=== PATIENT | female | born 1995 | race African-American/Black ===

== ENCOUNTER 2017-09-18 00:41 | Emergency (ER) | payer OTHER ==
[2017-09-18 00:54] VITALS: TEMP 98.6; BMI 21.1
--- NOTE | 2017-09-18 01:03 | PDOC ---
History of Present Illness - General History Source: Patient Exam Limitations: No Limitations - History of Present Illness Initial Comments: 09/18/17 01:07 The patient is a 22 year old female (approx. 15 weeks ), with no significant past medical history, who presents to the emergency room complaining of left sided tooth ache. The patient reports the pain began approx. two days ago, however, today the pain has progressed and is much worse. She reports associated symptoms of tenderness around the left jaw region. She denies recent falls or trauma. She denies recent fever, chills, nausea or dizziness. She denies chest pain or shortness of breath. Allergies: NKA <Jose J Ramos - Last Filed: 09/18/17 01:24> <Karolina Lai - Last Filed: 09/18/17 03:51> - General Chief Complaint: Toothache Stated Complaint: TOOTH PAIN Past History <Jose J Ramos - Last Filed: 09/18/17 01:24> - Suicide/Smoking/Psychosocial Hx Smoking History: Never smoked Have you smoked in the past 12 months: No Information on smoking cessation initiated: No Hx Alcohol Use: No Drug/Substance Use Hx: No <Karolina Lai - Last Filed: 09/18/17 03:51> - Past Medical History Allergies/Adverse Reactions: Allergies Allergy/AdvReac Type Severity Reaction Status Date / Time No Known Allergies Allergy Verified 09/18/17 00:52 Review of Systems - Review of Systems Comments:: 09/18/17 01:25 GENERAL/CONSTITUTIONAL: No fever or chills. No weakness. HEAD, EYES, EARS, NOSE AND THROAT: +Left sided tooth ache. No change in vision. No ear pain or discharge. No sore throat. MUSCULOSKELETAL: No joint or muscle swelling or pain. No neck or back pain. SKIN: No rash <Jose J Ramos - Last Filed: 09/18/17 01:24> *Physical Exam - Vital Signs Last Vital Signs Temp Pulse Resp BP Pulse Ox 98.6 F 95 H 14 129/91 100 09/18/17 00:52 09/18/17 00:52 09/18/17 00:52 09/18/17 00:52 09/18/17 00:52 - Physical Exam Comments: 09/18/17 01:28 GENERAL: Awake, alert, and fully oriented HEAD: No signs of trauma EYES: PERRLA, EOMI, sclera anicteric, conjunctiva clear ENT: Auricles normal inspection, hearing grossly normal, nares patent, oropharynx clear without exudates. Moist mucosa NECK: Normal ROM, supple, no lymphadenopathy, JVD, or masses EXTREMITIES: Normal range of motion, no edema. No clubbing or cyanosis. No cords, erythema, or tenderness SKIN: Warm, Dry, normal turgor, no rashes or lesions noted. <Jose J Ramos - Last Filed: 09/18/17 01:24> - Vital Signs Last Vital Signs Temp Pulse Resp BP Pulse Ox 98.6 F 95 H 14 129/91 100 09/18/17 00:52 09/18/17 00:52 09/18/17 00:52 09/18/17 00:52 09/18/17 00:52 <Karolina Lai - Last Filed: 09/18/17 03:51> ED Treatment Course - LABORATORY CBC & Chemistry Diagram: 09/18/17 02:00 09/18/17 02:00 <Karolina Lai - Last Filed: 09/18/17 03:51> Medical Decision Making - Medical Decision Making 09/18/17 03:09 Pt is 15 weeks and she comes with a left maxillary swelling and infection/phlegmon/early abscess (seen on sono) due to a broken tooth. Pt was treated with amoxil; however she will likely require transfer to [facility] for further eval and drainage. I have called the OMFS service at [facility] for consultation. Pt is afebrile and her WBC is 11, with no left shift, so she may be stable to follow as an outpatient. 09/18/17 03:[address] Curran OMFS service and he accepts the ED to ED transfer so that her early abscess can be dealt with sooner than later, given that she is 15 weeks . 09/18/17 03:51 Dr. Askew at [facility] ER will accept the patient. <Karolina Lai - Last Filed: 09/18/17 03:51> *DC/Admit/Observation/Transfer - Attestations Scribe Attestion: 09/18/17 01:31 Documentation prepared by Jose J Ramos, acting as biomedical photographer for Karolina Lai MD. <Jose J Ramos - Last Filed: 09/18/17 01:24> - Discharge Dispostion Admit: No - Transfer to Acute Care Facility Receiving Facility: [facility] <Karolina Lai - Last Filed: 09/18/17 03:51> Diagnosis at time of Disposition: Acute abscess of maxillary sinus - Discharge Dispostion Disposition: TRANSFER ACUTE CARE/OTHER HOSP Condition at time of disposition: Guarded - Patient Instructions Printed Discharge Instructions: DI for Tooth Decay, DI for Tooth Abscess
[2017-09-18] MEDS ORDERED: AMOXICILLIN 500 MG CAPSULE (FP) PO ONE (01:07)
[2017-09-18] MEDS ORDERED: AMOXICILLIN 500 MG CAPSULE (FP) ONE (01:29)
[2017-09-18 02:05] LABS: BASOPHIL 0.3 % (0-2.0); EOSINOPHIL 1.6 % (0-4.5); MCH 26.2 pg (25.7-33.7); MCHC 33.2 g/dl (32.0-36.0); MEAN CELL VOLUME 79.1 fl (80-96); MEAN PLT VOLUME 8.1 fl (7.5-11.1); NEUTROPHILS 71.7 % (42.8-82.8); PLATELET COUNT 312 K/MM3 (134-434); RDW 15.5 % (11.6-15.6); WHITE BLOOD COUNT 11.1 K/mm3 (4.0-10.0)
[2017-09-18 03:19] LABS: ALBUMIN 3.1 g/dl (3.4-5.0); ALK PHOS 56 U/L (45-117); ANION GAP 11 (8-16); BILIRUBIN,TOTAL 0.1 mg/dL (0.2-1.0); CO2 24 mmol/L (21-32); CREATININE 0.7 mg/dL (0.55-1.02); GLUCOSE,RANDOM 94 mg/dL (74-106); SGOT/AST 10 U/L (15-37); SGPT/ALT 12 U/L (12-78); TOT PROT 6.7 g/dl (6.4-8.2)
[2017-09-18 03:29] LABS: CALCIUM 8.6 mg/dL (8.5-10.1)
[2017-09-18 04:24] VITALS: BP 130/68; PULSE 96
== END 2017-09-18 04:30 | disposition short-term general hospital (02) ==
LOC: JER 00:41
DX: O99.89 Other specified diseases and conditions complicating pregnancy, childbirth and the puerperium (principal); J01.00 Acute maxillary sinusitis, unspecified; Z3A.15 15 weeks gestation of pregnancy
CPT/HCPCS: 36415; 76536-TC; 80053; 85025; 99283-25

== ENCOUNTER 2018-03-02 15:35 | Inpatient (IN) | payer OTHER ==
[2018-03-02] MEDS: AMPICILLIN - 2 GM in SODIUM CHLORIDE 100 ML IVPB ONE ×2 (15:40→15:45)
[2018-03-02] MEDS ORDERED: OXYTOCIN 20 UNITS in 0.9% NS 20 UNIT/1,000 ML INFUS.BAG IV ONE ×3 (16:00→19:22)
[2018-03-02] MEDS ORDERED: LIDOCAINE HCL 1% PRESERVATIVE FREE - 30ML VIAL ONE (16:00)
[2018-03-02] MEDS ORDERED: DEXTROSE 5%-LACTATED RINGERS 1,000 ML IV SCH (16:00)
[2018-03-02] MEDS ORDERED: OXYTOCIN 20 UNITS in 0.9% NS 20 UNIT/1,000 ML INFUS.BAG IV SCH (16:25)
[2018-03-02] MEDS ORDERED: ACETAMINOPHEN 325 MG TABLET (FP) ONE (17:06)
[2018-03-02] MEDS ORDERED: IBUPROFEN 600 MG TABLET (FP) PO ONE (17:06)
[2018-03-02 17:18] LABS: VENOUS PC02 37.5 mmHg (38-52); VENOUS PH 7.35 (7.32-7.42); VENOUS PO2 37.7 mmHg (28-48)
[2018-03-02 17:26] LABS: ARTERIAL BLOOD GAS BASE EXCESS -4.3 meq/l (-2-2); ARTERIAL BLOOD GAS PCO2 56.1 mmHg (35-45)
[2018-03-02 17:36] LABS: ARTERIAL BLOOD GAS PO2 19.5 mmHg (80-100); ARTERIAL BLOOD GAS pH 7.24 (7.35-7.45)
[2018-03-02 17:37] LABS: ARTERIAL BLD GAS O2 SATURATION 33.8 % (90-98.9)
[2018-03-02 17:42] LABS: BASO % 0.3 % (0-2.0); HEMATOCRIT 28.1 % (32.4-45.2); HEMOGLOBIN 8.9 GM/dL (10.7-15.3); LYMPH % 9.2 % (8-40); MCH 22.2 pg (25.7-33.7); MCHC 31.9 g/dl (32.0-36.0); MEAN CELL VOLUME 69.7 fl (80-96); MEAN PLT VOLUME 8.6 fl (7.5-11.1); MONO % 6.4 % (3.8-10.2); NEUT % 84.1 % (42.8-82.8); PLATELET COUNT 364 K/MM3 (134-434); RBC 4.03 M/mm3 (3.60-5.2); RDW 17.9 % (11.6-15.6); WHITE BLOOD COUNT 11.4 K/mm3 (4.0-10.0)
[2018-03-02 17:57] LABS: INR 0.99 (0.82-1.09); PROTHROMBIN TIME (PATIENT) 11.2 SEC (9.98-11.88)
[2018-03-02 18:11] LABS: ALBUMIN 2.9 g/dl (3.4-5.0); ANION GAP 15 (8-16); BILIRUBIN,TOTAL 0.5 mg/dL (0.2-1.0); BLOOD UREA NITROGEN 7 mg/dL (7-18); CALCIUM 8.9 mg/dL (8.5-10.1); CHLORIDE 103 mmol/L (98-107); CO2 19 mmol/L (21-32); CREATININE 0.8 mg/dL (0.55-1.02); GLUCOSE,RANDOM 78 mg/dL (74-106); POTASSIUM 3.7 mmol/L (3.5-5.1); SGOT/AST 16 U/L (15-37); SGPT/ALT 9 U/L (12-78); SODIUM 137 mmol/L (136-145); TOT PROT 7.2 g/dl (6.4-8.2)
[2018-03-02 18:12] LABS: ALK PHOS 239 U/L (45-117)
[2018-03-02 18:15] VITALS: BMI 27.1
[2018-03-02 18:51] LABS: URINE APPEARANCE CLEAR; URINE BILIRUBIN NEGATIVE (<2.0 mg/dL); URINE BLOOD NEGATIVE (NEGATIVE); URINE COLOR YELLOW; URINE GLUCOSE (UA) NEGATIVE (NEGATIVE); URINE KETONE 2+ (NEGATIVE); URINE LEUK ESTERASE NEGATIVE (NEGATIVE); URINE NITRITE NEGATIVE (NEGATIVE)
[2018-03-02] MEDS ORDERED: IBUPROFEN 600 MG TABLET (FP) PO PRN ×2 (18:55→22:03)
[2018-03-02] MEDS ORDERED: SENNOSIDES/DOCUSATE COMBO (SENNA PLUS) TABLET (UD) PO PRN (18:56)
[2018-03-02] MEDS ORDERED: ACETAMINOPHEN 325 MG TABLET (FP) PO PRN ×2 (18:56→22:03)
[2018-03-02] MEDS ORDERED: BENZOCAINE 28 GM HEMORRHOIDAL OINTMENT TP PRN ×2 (18:57→22:03)
[2018-03-02] MEDS ORDERED: WITCH HAZEL 50% (TUCKS) 40 PAD/JAR PAD TP PRN ×2 (18:58→22:03)
[2018-03-02] MEDS ORDERED: BENZOCAINE 20% 57 GM BOTTLE TP PRN ×2 (18:58→22:03)
[2018-03-02] MEDS ORDERED: METHYLERGONOVINE MALEATE 0.2 MG/1 ML AMP IM PRN ×2 (18:58→22:03)
[2018-03-02] MEDS ORDERED: BISACODYL 10 MG SUPP.RECT RC PRN ×2 (18:59→22:03)
[2018-03-02 19:28] LABS: URINE PROTEIN 1+ (NEGATIVE)
[2018-03-02 19:29] LABS: COCAINE, UR NEGATIVE ng/ml (CUTOFF=300); METHADONE, UR NEGATIVE ng/ml (CUTOFF=300); OPIATES, URI NEGATIVE ng/ml (CUTOFF=300); PHENCYCLIDINE,URINE NEGATIVE ng/ml (CUTOFF=25); URINE AMPHETAMINES NEGATIVE ng/ml (CUTOFF=500); URINE BARBITURATES NEGATIVE ng/ml (CUTOFF=200); URINE BENZODIAZEPINES NEGATIVE ng/ml (CUTOFF=200)
[2018-03-02] MEDS ORDERED: TUBERCULIN PPD 5 TU/0.1ML SYRINGE (IN PATIENT USE ONLY) ID ONE (20:00)
[2018-03-02 20:16] LABS: EPI CELLS RARE /HPF (FEW); URINE MUCUS MODERATE
--- NOTE | 2018-03-02 22:10 | HP ---
Past Medical History - Primary Care Physician PCP:: Dell Alfaro - Admission Chief Complaint: 38.5 weeks, labor History of Present Illness: 22 yo f .38.5 weeks, yuridia at [facility] no record available c/o contraction, no rom, no bleeding ,cx full 100 vx 2+ , mi ,bulging , fhr cat 1, contraction q 3 min History Source: Patient Limitations to Obtaining History: No Limitations - Past Medical History ...: 2 ...Para: 0 ...Term: 0 ...: 0 ...Spon : 0 ...Induced : 1 ...Multiple Gestation: 0 ...EDC by Sono: 03/11/18 - Past Surgical History Hx Myomectomy: No Hx Transabdominal Cerclage: No - Smoking History Smoking history: Never smoked Have you smoked in the past 12 months: No - Alcohol/Substance Use Hx Alcohol Use: No History of Substance Use: reports: Marijuana - Social History History of Recent Travel: No Home Medications - Allergies Allergies/Adverse Reactions: Allergies Allergy/AdvReac Type Severity Reaction Status Date / Time No Known Allergies Allergy Verified 03/02/18 16:56 - Home Medications Home Medications: Ambulatory Orders Vit/Iron Fum/Folic AC [ Tablet] 1 tab PO DAILY 03/02/18 Review of Systems - Review of Systems Constitutional: reports: No Symptoms Eyes: reports: No Symptoms HENT: reports: No Symptoms Neck: reports: No Symptoms Cardiovascular: reports: No Symptoms Respiratory: reports: No Symptoms Gastrointestinal: reports: No Symptoms Genitourinary: reports: No Symptoms Breasts: reports: No Symptoms Reported Musculoskeletal: reports: No Symptoms Integumentary: reports: No Symptoms Neurological: reports: No Symptoms Endocrine: reports: No Symptoms Hematology/Lymphatic: reports: No Symptoms Psychiatric: reports: No Symptoms Physical Exam - Maternity Vital Signs: Vital Signs Temperature 98.5 F 03/02/18 20:02 Pulse Rate 75 03/02/18 20:02 Respiratory Rate 20 03/02/18 20:02 Blood Pressure 137/77 03/02/18 20:02 O2 Sat by Pulse Oximetry (%) 100 03/02/18 17:40 Constitutional: Yes: Well Nourished, No Distress, Calm Eyes: Yes: WNL, Conjunctiva Clear, EOM Intact HENT: Yes: WNL, Atraumatic, Normocephalic Neck: Yes: WNL, Supple, Trachea Midline Cardiovascular: Yes: WNL, Regular Rate and Rhythm Breast(s): Yes: WNL - Abdominal Exam/OB Fundal Height: 38 Number of Fetuses: Single Presentation: Vertex Contractions: Yes Regularity: Regular Intensity: Mod/Strong Monitor Mode: External Heart Rate Location: [facility] Category: I Accelerations: Uniform Decelerations: None - Vaginal Exam/OB Vaginal Bleediing: Bloody Show Station: +2 - Physical Exam Musculoskeletal: Yes: WNL Edema: Yes Edema: LLE: Trace, RLE: Trace Deep Tendon Reflex Grade: Normal +2 Psychiatric: Yes: WNL - Labs Lab Results: CBC, BMP 03/02/18 17:00 03/02/18 17:00 Hemorrhage Risk Assessment - Risk Factors Medium Risk Factors: Yes: None High Risk Factors: Yes: None Risk Score: 1 Risk Level: Medium Risk Problem List - Problems (1) with 38 completed weeks gestation Code(s): Z3A.38 - 38 WEEKS GESTATION OF (2) Labor established Code(s): XVK8838 - Assessment/Plan admit , fhm,
[2018-03-02] MEDS ORDERED: D5W-LR W/ 20 UNITS OXYTOCIN 20 UNIT/1,000 ML INFUS.BAG IV SCH (22:15)
--- NOTE | 2018-03-03 07:27 | PN ---
Progress Note (short form) - Note Progress Note: ppd 1 ,no c/o ,no excess vaginal bleeding CBC, BMP 03/02/18 17:00 03/02/18 17:00 Last Vital Signs Temp Pulse Resp BP Pulse Ox 98.7 F 65 20 118/59 100 03/03/18 05:00 03/03/18 05:00 03/03/18 05:00 03/03/18 05:00 03/02/18 17:40 abdomen soft, uturus firm, non tender lochia mild no calf tenderness plan ambulate , cbc hx of marijuana use, social service consult Problem List - Problems (1) with 38 completed weeks gestation Code(s): Z3A.38 - 38 WEEKS GESTATION OF (2) Labor established Code(s): TXF4937 -
[2018-03-03 08:44] LABS: BASO % 0.6 % (0-2.0); EOS % 2.9 % (0-4.5); HEMATOCRIT 25.5 % (32.4-45.2); LYMPH % 19.5 % (8-40); MCH 21.8 pg (25.7-33.7); MCHC 31.4 g/dl (32.0-36.0); MEAN CELL VOLUME 69.2 fl (80-96); MEAN PLT VOLUME 8.1 fl (7.5-11.1); MONO % 8.2 % (3.8-10.2); NEUT % 68.8 % (42.8-82.8); PLATELET COUNT 335 K/MM3 (134-434); RBC 3.68 M/mm3 (3.60-5.2); WHITE BLOOD COUNT 13.5 K/mm3 (4.0-10.0)
[2018-03-03] MEDS: FERROUS SO4 325 MG TABLET (FP) PO SCH ×2 (09:17→21:15)
[2018-03-03] MEDS: PRENATAL VITAMINS W/ FOLIC ACID TABLET (FP) PO SCH (09:17)
[2018-03-03 16:10] LABS: RPR NONREACTIVE (NONREACTIVE)
[2018-03-03] MEDS ORDERED: SENNOSIDES/DOCUSATE COMBO (SENNA PLUS) TABLET (UD) PO PRN (22:00)
[2018-03-04 06:10] LABS: HBsAG SCREEN Negative (Negative)
--- NOTE | 2018-03-04 08:29 | PN ---
Post Progress Note - Subjective Subjective: no c/o dizziness c/o cramps Post Day: 2 Type of Delivery: Vital Signs: Vital Signs Temperature 97.9 F 03/03/18 22:00 Pulse Rate 77 03/03/18 22:00 Respiratory Rate 20 03/03/18 22:00 Blood Pressure 128/73 03/03/18 22:00 O2 Sat by Pulse Oximetry (%) 100 03/03/18 21:00 Breast Exam: Yes: Soft, Other (not BF ). No: Engorged Uterus: Yes: Fundus Firm, Fundus below umbilicus, Non-tender Lochia, amount: Moderate Extremities: Yes: Calves non-tender. No: Edema Perineum: Yes: Intact Activity: Ambulating - Labs Labs: CBC WBC 13.5 K/mm3 (4.0-10.0) H 03/03/18 08:30 RBC 3.68 M/mm3 (3.60-5.2) 03/03/18 08:30 Hgb 8.0 GM/dL (10.7-15.3) L D 03/03/18 08:30 Hct 25.5 % (32.4-45.2) L 03/03/18 08:30 MCV 69.2 fl (80-96) L 03/03/18 08:30 MCH 21.8 pg (25.7-33.7) L 03/03/18 08:30 MCHC 31.4 g/dl (32.0-36.0) L 03/03/18 08:30 RDW 18.0 % (11.6-15.6) H 03/03/18 08:30 Plt Count 335 K/MM3 (134-434) 03/03/18 08:30 MPV 8.1 fl (7.5-11.1) 03/03/18 08:30 Neutrophils % 68.8 % (42.8-82.8) 03/03/18 08:30 Lymphocytes % 19.5 % (8-40) D 03/03/18 08:30 Monocytes % 8.2 % (3.8-10.2) 03/03/18 08:30 Eosinophils % 2.9 % (0-4.5) D 03/03/18 08:30 Basophils % 0.6 % (0-2.0) 03/03/18 08:30 Assessment/Plan ppd #2 , anemia stable . anemia counselled plan discharge today
[2018-03-04] MEDS: PRENATAL VITAMINS W/ FOLIC ACID TABLET (FP) PO SCH (09:05)
[2018-03-04] MEDS: FERROUS SO4 325 MG TABLET (FP) PO SCH (09:05)
[2018-03-04 09:40] VITALS: BP 119/70; PULSE 62; TEMP 98.3
[2018-03-04 14:10] LABS: RUBELLA IgG ANTIBODY 0.93 index (Immune >0.99)
== END 2018-03-04 12:00 | disposition home or self-care (01) | DRG 560 ==
LOC: JLDR 15:35 → J3W 19:45
PROVIDERS: ADMIT Obstetrics & Gynecology; ATTEND Obstetrics & Gynecology
PROC: 10E0XZZ Delivery of Products of Conception, External Approach (ICD-10-PCS; principal; 2018-03-02)
DX: O99.02 Anemia complicating childbirth (principal); D64.9 Anemia, unspecified; Z3A.38 38 weeks gestation of pregnancy; Z37.0 Single live birth
CPT/HCPCS: 36415; 36600; 59409; 80053; 80307; 81003; 81015; 82803; 85025; 85610; 85730; 86593; 86762; 86850; 86900; 86901; 87086; 87340; 87389

== ENCOUNTER 2020-07-13 12:29 | Emergency (ER) | payer OTHER ==
[2020-07-13 12:48] VITALS: BP 139/87; PULSE 57; TEMP 98.1; BMI 20.3
--- NOTE | 2020-07-13 12:56 | PDOC ---
History of Present Illness - General Chief Complaint: Toothache Stated Complaint: MOUTH ABSCESS Time Seen by Provider: 07/13/20 12:49 History Source: Patient Exam Limitations: No Limitations - History of Present Illness Initial Comments: 07/13/20 13:00 24 year old female with no pmhx presenting with 2 days of left lower dental pain. Pt states she has had a cracked and cavitated wisdom tooth for quite some time and 2 days ago it began to ache and she experience facial swelling. Pt states the pain and swelling worsened today, she took tylenol and presented to he ED. Pt denies trouble swallowing, drooling, fevers, chills, syncope, lightheadedness, dizziness, headaches, neck pain, chest pain, shortness of breath, palpitations, back pain, abdominal pain, nausea, vomiting, diarrhea, constipation. Past History - Medical History Allergies/Adverse Reactions: Allergies Allergy/AdvReac Type Severity Reaction Status Date / Time No Known Allergies Allergy Verified 07/13/20 12:40 Home Medications: Ambulatory Orders Vit/Iron Fum/Folic AC [ Tablet] 1 tab PO DAILY 03/02/18 Acetaminophen [Tylenol .Regular Strength -] 650 mg PO Q3H PRN tablet 03/04/18 Ferrous Sulfate [Feosol] 325 mg PO BID #60 tab 03/04/18 Ibuprofen [Motrin -] 200 mg PO Q4H PRN tablet 03/04/18 Vitamins (Sjr) - 1 tab PO DAILY #30 tablet 03/04/18 Anemia: No Asthma: No Cancer: No Cardiac Disorders: No CVA: No COPD: No DVT: No Dementia: No Diabetes: No Dialysis: No GI Disorders: No Disorders: No HTN: No Hypercholesterolemia: No Kidney Stones: No Liver Disease: No Psychiatric Problems: No Seizures: No Thyroid Disease: No Lung CA: No - Reproductive History Is Patient Now?: No - Psycho-Social/Smoking History Smoking History: Current every day smoker Have you smoked in the past 12 months: No Information on smoking cessation initiated: No - Substance Abuse Hx (Audit-C & DAST Scrn) How often the patient has a drink containing alcohol: Never Score: In Men: 4 or > Positive; In Women: 3 or > Positive: 0 Screen Result (Pos requires Nsg. Audit-10AR): Negative *Physical Exam - Vital Signs Last Vital Signs Temp Pulse Resp BP Pulse Ox 98.1 F 57 L 18 139/87 99 07/13/20 12:33 07/13/20 12:33 07/13/20 12:33 07/13/20 12:33 07/13/20 12:33 - Physical Exam 07/13/20 13:02 Gen: AAOx 3, no acute distress, comfortable, no signs of respiratory distress HENT: atraumatic, normocephalic with no laceration or contusion. Nasal mucosa without erythema. Oropharynx without erythema or exudates. Mucous membranes moist. Left sided facial asymmetry Dental: tooth number 17 cracked caviatated, with surrounding erythema and swelling consistent with a dental abscess, no drooling, trismus stirdor EYES: PERRL, EOM intact, conjunctiva pink NECK: supple; trachea midline; no JVD, no lymphadenopathy, or thyromegaly CV: RRR no murmurs, gallops, or rubs. CHEST: CTA b/l no wheezing, rales or rhonchi ABD: +BS/ND. no TTP; soft, no rebound, no guarding EXTREMITY: no cyanosis or erythema. 2+ dorsalis pedis, posterior tibial, and radial pulse. No pedal edema; no calf swelling or tenderness SKIN: no rash, warm and dry, no diaphoresis HEME: no purpura or ecchymosis NEURO: normal speech, CN II-XII intact, sensation intact, normal gait, no cerebellar deficits MS: 5/5 strength in all extremities, FROM intact in all extremities. 07/13/20 13:04 Medical Decision Making - Medical Decision Making 07/13/20 13:04 24 year old female with dental pain and abscess VSS Pt and I had an informed decision making conversation I informed pt that it was imperative for her to see an oral surgeon today, and that unfortunately we do not have this service here. I offered to have the patient transfered to [facility] as well as to draw labs and start antibiotics however pt states she rather drive herself to [facility] now rather than wait to be transferred. Pt is of sound decision making and appears well and is stable for discharge as long as she precedes directly to [facility] which she agrees to do. Pt given strict return precautions and understands the importance of seeing an oral surgeon immediately. Discharge - Discharge Information Problems reviewed: Yes Clinical Impression/Diagnosis: Dental abscess Condition: Stable Disposition: HOME - Follow up/Referral Referrals: Eliecer German [Primary Care Provider] - - Patient Discharge Instructions Patient Printed Discharge Instructions: DI for Tooth Abscess Additional Instructions: You MUST SEE A DENTIST TODAY - Post Discharge Activity
== END 2020-07-13 13:22 | disposition home or self-care (01) ==
LOC: JER 12:29 → JERFT 12:29
DX: K04.7 Periapical abscess without sinus (principal)
CPT/HCPCS: 99282-25